=== PATIENT | female | born 1985 | race Two or more races ===

== ENCOUNTER 2024-08-03 12:07 | Emergency (ER) | payer BC, OTHER ==
[~2024-08-03] VITALS: Ht 152.4 cm; Wt 51.9 kg
[2024-08-03] MEDS ORDERED: IBUP1TAB4 PO (16:25)
[2024-08-03 16:29] VITALS: BP 126/80; PULSE 108; RESP 15; TEMP 98.4; O2SAT 97
[2024-08-03] MEDS: IBUPROFEN 400 MG TAB PO ONE (16:32)
== END 2024-08-03 16:36 | disposition home or self-care (01) ==
LOC: ER 12:07
DX: M25.562 Pain in left knee (principal); M25.571 Pain in right ankle and joints of right foot; M79.641 Pain in right hand